=== PATIENT | male | born 1970 | race Caucasian/White ===

== ENCOUNTER 2019-12-13 22:15 | Emergency (ER) | payer OTHER, SELFPAY ==
[2019-12-13] MEDS ORDERED: FLUORESCEIN SODIUM 1 MG/WRAP ONE (22:52)
[2019-12-13] MEDS ORDERED: TETRACAINE HCL 0.5% 4ML OPTH ONE (22:52)
[2019-12-13] MEDS ORDERED: Ringers Lactate 1,000 ML IV ONE (23:16)
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
[2019-12-14] MEDS ORDERED: TOBRAMYCIN SULF 0.3% OPTH OINT ONE (00:11)
[2019-12-14 00:28] VITALS: TEMP 97.9
[2019-12-14 00:30] VITALS: BP 151/95; O2SAT 97
== END 2019-12-14 00:12 | disposition home or self-care (01) ==
LOC: ER 22:15
DX: H10.9 Unspecified conjunctivitis (principal); Z77.098 Contact with and (suspected) exposure to other hazardous, chiefly nonmedicinal, chemicals; F17.210 Nicotine dependence, cigarettes, uncomplicated; Z91.048 Other nonmedicinal substance allergy status
CPT/HCPCS: 96360; 99284; J7120

== ENCOUNTER 2023-06-05 19:50 | Inpatient (IN) | payer BC, SELFPAY ==
--- OUTSIDE RECORDS SUMMARY | 2023-06-05 19:53 | XMS REPORT | Continuity of Care Document ---
Author Name Unknown Address [address] [facility] [address] [place] [address] [facility] thconnect Address [address] [facility] [address] [place] [address] Care Team Providers Care Upholstery Department Supervisor Name Role Phone RAHUL NARANJO Primary Care Physician RAHUL Ames Attending Clinician UnavailRAHUL Mayer Attending Clinician Unavailab le 2, Adc Lab Attending Clinician Unavailable Doctor Unassigned, [place] Attending Clinician U navailable Payers Payer Name Policy Type Policy Number Effective Date Expirati on Date Source [place] - OUT OF STATE [id number] 2023 00:00:00 [place] MANA[place]ED MEDICAID STAR NON CONTRACTED [id number] 2023 00:00:00 Problems Condition Name Condition Details Condition Category Status Onset Date Resolution Date Last Treatment Date Treating Clinician Comments Source High cholestero l High cholestero l Disease Active 2-14 00:00: 00 [facility] Allergies, Adverse Reactions, Alerts Allergy Name Allergy Type Status Severity Reaction(s) Onset Date Inactive Date Treating Clinician Comments Source Red Dye Propensi ty to adverse reaction s Active Other - See comments 07-18 00:00: 00 Vision loss [facility] RED DYE DRUG INGREDI Active High Unknown-Cmnt 07-18 00:00: 00 [facility] Social History Social Habit Start Date Stop Date Quantity Comments Source History of tobacco use Cigarette Smoker [facility] Alcohol intake 2022-10-08 00:00:00 2022-10-08 00:00:00 .43 /d [facility] Cigarettes smoked current (pack per day) - Reported 2022-04-09 00:00:00 2022-04-09 00:00:00 [facility] Tobacco use and exposure 2022-04-09 00:00:00 2022-04-09 00:00:00 Smokeless tobacco non-user [facility] Tobacco Comment 2022-04-09 00:00:00 2022-04-09 00:00:00 Started at age 17 [facility] History SDOH Financial 2022-04-03 00:00:00 2022-04-03 00:00:00 5 [facility] History SDOH Food Worry 2022-04-03 00:00:00 2022-04-03 00:00:00 1 [facility] History SDOH Food Scarcity 2022-04-03 00:00:00 2022-04-03 00:00:00 1 [facility] History SDOH Transport Med 2022-04-03 00:00:00 2022-04-03 00:00:00 2 [facility] History SDOH Transport Non-Med 2022-04-03 00:00:00 2022-04-03 00:00:00 2 [facility] Alcohol Comment 2022-04-03 00:00:00 2022-04-03 00:00:00 monthly [facility] History of Social function 2022-04-03 00:00:00 2022-04-03 00:00:00 [facility] Sex Assigned At 1970 00:00:00 1970 00:00:00 [facility] Smoking Status Start Date Stop Date Source Smokes tobacco daily 2022-04-09 00:00:00 [facility] Medications Ordered Medication Name Filled Medication Name Start Date Stop Date Current Medication? Ordering Clinician Indication Dosage Frequency Signature (SIG) Comments Components Source LOVAZA, omega-3-aci d ethyl esters, (LOVAZA) 1 gram capsule 04-18 00:00: 00 Yes [id number] 2g Take 2 capsules by mouth in the morning and 2 capsules in the evening. [facility] Fenofibric Acid 135 mg capsule 2- 00:00: 00 Yes [id number] 135mg TAKE 1 CAPSULE BY MOUTH AT BEDTIME [facility] LOVAZA, omega-3-aci d ethyl esters, (LOVAZA) 1 gram capsule 3-31 00:00: 00 04-18 00:00 :00 No [id number] 1g Take 1 capsule by mouth in the morning and 1 capsule in the evening. [facility] Fenofibric Acid 135 mg capsule 2-20 00:00: 00 04-14 00:00 :00 No [id number] 135mg Take 1 capsule by mouth at bedtime. [facility] Fenofibric Acid 135 mg capsule 9- 00:00: 00 04-09 00:00 :00 No 135mg Take 135 mg by mouth. [facility] Immunizations Ordered Immunization Name Filled Immunization Name Date Status Comments Source DTAP 2019-03-19 00:00:00 Completed [facility] DTAP 2019-03-19 00:00:00 Completed [facility] DTAP 2019-03-19 00:00:00 Completed [facility] DTAP 2019-03-19 00:00:00 Completed [facility] DTAP 2019-03-19 00:00:00 Completed [facility] DTAP 2019-03-19 00:00:00 Completed [facility] DTAP 2019-03-19 00:00:00 Completed [facility] DTAP 2019-03-19 00:00:00 Completed [facility] DTAP Unknown Completed [facility] DTAP Unknown Completed [facility] DTAP Unknown Completed [facility] DTAP Unknown Completed [facility] Vital Signs Vital Name Observation Time Observation Value Comments S ource Systolic blood pressure 2023-04-19 15:43:00 130 mm[Hg] [facility] Diastolic blood pressure 2023-04-19 15:43:00 84 mm[Hg] [facility] acute hospital Heart rate 2023-04-19 15:43:00 60 /min [facility] Body temperature 2023-04-19 15:43:00 36.39 Liz [facility] Respiratory rate 2023-04-19 15:43:00 18 /min [facility] Body height 2023-04-19 15:43:00 175.3 cm Univ [facility] Body weight 2023-04-19 15:43:[address] [facility] BMI 2023-04-19 15:43:00 27.87 kg/m2 [facility] Oxygen saturation in Arterial blood by Pulse oximetry 2023-04-19 15:43:00 94 /min [facility] acute hospital Systolic blood pressure 2022-10-08 14:25:00 138 mm[Hg] General acute hospital Diastolic blood pressure 2022-10-08 14:25:00 83 mm[Hg] [facility] acute hospital Body weight 2022-10-08 14:24:[address] [facility] BMI 2022-10-08 14:24:00 27.64 kg/m2 [facility] Oxygen saturation in Arterial blood by Pulse oximetry 2022-10-08 14:24:00 98 /min General acute hospital Heart rate 2022-10-08 14:24:00 58 /min Un[facility] Body temperature 2022-10-08 14:24:00 36.56 Liz [facility] Respiratory rate 2022-10-08 14:24:00 22 /min [facility] Body height 2022-10-08 14:24:00 175.3 cm [facility] Diastolic blood pressure 2022-04-09 21:03:00 75 mm[Hg] General acute hospital Heart rate 2022-04-09 21:03:00 70 /min Un[facility] Body temperature 2022-04-09 21:03:00 37.11 Liz [facility] Respiratory rate 2022-04-09 21:03:00 18 /min [facility] Body height 2022-04-09 21:03:00 176.5 cm [facility] Body weight 2022-04-09 21:03:00 85.957 kg Univ [facility] BMI 2022-04-09 21:03:00 27.58 kg/m2 [facility] Oxygen saturation in Arterial blood by Pulse oximetry 2022-04-09 21:03:00 95 /min General acute hospital Systolic blood pressure 2022-04-09 21:03:00 127 mm[Hg] General acute hospital Procedures Procedure Date / Time Performed Performing Clinician Source FREE T4 2023-04-19 16:39:00 Rahul Naranjo Un [facility] THYROID STIMULATING HORMONE 2023-04-19 16:39:00 Rahul Naranjo [facility] COMP. METABOLIC PANEL (96512) 2023-04-19 16:39:00 Rahul Naranjo [facility] LIPID PANEL (64370)(TOTAL CHOLESTEROL, TRIGLYCERIDES, HDL) 2023-04-19 16:39:00 Rahul Naranjo [facility] CBC WITH DIFF 2023-04-19 16:39:00 Rahul Naranjo U [facility] GLYCOSYLATED HEMOGLOBIN (A1C) 2023-04-19 16:39:00 Rahul Naranjo [facility] FREE T3 2023-04-19 16:39:00 Rahul Naranjo [facility] ASSIGNMENT OF BENEFITS 2022-10-08 14:17:52 Docto r Unassigned, [place] [facility] Encounters Start Date/Time End Date/Time Encounter Type Admission Type Attending Clinicians Care Facility Care Department Encounter ID Source 2023-10-18 09:30:00 2023-10-18 09:30:00 Outpatient R RAHUL [facility]ARANJO [facility] [id number] [facility] 2023-10-16 15:30:00 2023-10-16 15:30:00 Outpatient R RAHUL NARANJO [facility] [id number] [facility] 2023-04-19 10:30:00 2023-04-19 10:45:00 Glass Presser Visit 2, [facility] Rahul [facility]aran[facility] 1.2.840.114 350.1.13.10 4.2.7.2.686 [id number] [facility] 2023-04-19 09:30:00 2023-04-19 10:23:21 Office Visit Rahul Naranjo [facility] 1.2.840.114 350.1.13.10 4.2.7.2.686 [id number] [facility] 2023-04-19 09:30:00 2023-04-19 10:23:21 Outpatient R JOSE AVIC REMYVanessaJosé Antonio FERNANDEZJOSE AJUAN YINGKARTIKVanessaJosé Antonio [facility] [id number] [facility] 2023-04-13 00:00:00 2023-04-13 00:00:00 Refill Rahul Naranjo [facility] 1.2.840.114 350.1.13.10 4.2.7.2.686 [id number] [facility] 2022-10-08 10:30:00 2022-10-08 10:45:00 Glass Presser Visit 2, Adc Lab Rahul Naranjo [facility] 1.2.840.114 350.1.13.10 4.2.7.2.686 [id number] [facility] 2022-10-08 09:30:00 2022-10-08 10:28:26 Outpatient R VIC NARANJOVanessaJosé Antonio FERNANDEZJOSE A VICVanessaJosé Antonio [facility] [id number] [facility] 2022-10-08 09:30:00 2022-10-08 10:28:26 Office Visit Rahul Naranjo [facility] 1.2.840.114 350.1.13.10 4.2.7.2.686 [id number] [facility] 2022-10-08 00:00:00 2022-10-08 00:00:00 Orders Only Doctor Unassigned, [place] [facility] 1.2.840.114 350.1.13.10 4.2.7.2.686 [id number] [facility] 2022-05-18 00:00:00 2022-05-18 00:00:00 Telephone Juan Naranjosaji [facility] 1.2.840.114 350.1.13.10 4.2.7.2.686 [id number] [facility] 2022-04-10 10:00:00 2022-04-10 10:15:00 Glass Presser Visit 2, Adc Lab Jose ARahul remy [facility] 1.2.840.114 350.1.13.10 4.2.7.2.686 [id number] [facility] 2022-04-10 10:00:00 2022-04-10 10:00:00 Outpatient R RAHUL NARANJO [facility] [id number] [facility] 2022-04-09 15:00:00 2022-04-09 15:53:01 Office Visit Rahul Naranjo [facility] 1.2.840.114 350.1.13.10 4.2.7.2.686 [id number] [facility] 2022-04-09 15:00:00 2022-04-09 15:53:01 Outpatient R RHAUL NARANJO [facility] [id number] [facility] Notes Date/Time Note Provider Source 2023-04-19 10:30:00 hreC9LD9ebYd5m8gmh2C VpyThSvs9xIooi vt0AkZXl5xXkhs9rpf/wvKJ9SZSSlA6863 -03-01T10:30:00 Images from the original note were not included.Venipuncture collection performed by clean technique on the left anticubitus. Total of 1 attempts were made. Slight pressure and a bandage/dressing were applied to the site(s). The patient experienced no complications. The following specimens were processed according to instructions and sent to [facility] laboratories per lab order on 04/19/2023:LT BLUESST 1REDLAV 2PPTDK GREEN (LiHep)DK GREEN (SodH)GRAYDK BLUE (K2)DK BLUE (S)ACDBlood CultureNIPT/NTD 50604-6Pnary TqvaPP3390-04-55X34:39:49Nurse NoteTXT1.2.840.679592.1.13.104.2.7 .2.769708|[id number] for patient xien29673-3Swcyz NoteLNNARRATIVEFormatted C-CDA narrative text[address] RaiwAhfjszuveEvdqmfgesXWGX00401088 23DQMGPBPQRSPEMAGJDQFENM4384-95-85 T10:39:491.2.840.572004.1.72.3.15| 1.2.840.545656.1.13.104.2.7.2.7278 [id number] [facility] 2023-04-14 15:58:49 Atorwetz6FMPo2DUn8df EzQnONTfTN0+Lo nHBzB1bruAZhrRvegG3M2c45topO6q7564 -02-25T15:58:49 Last OV: 10/08/2022 with [facility] [employer] Refill: 04/09/2022 prescribed by [facility] Pertaining to Med:Recent Labs571310MZPA 231*LDL 124HDL 36*TRIG 355*AST(SGOT) (U/L)Date Value10/08/2022 28ALTv (U/L)Date Value10/08/2022 28Future Appt:Future AppointmentsProvider Department Dept Phone04/19/2023 9:30 AM Rahul Naranjo NP [facility] [place] [phone] request for fenofibric acid refilled per ambulatory refill guidelines. 77628-0Xujpsummj encounter KpfnKZ7794-24-27T88:00:55Telephone encounter NoteTXT1.2.840.293607.1.13.104.2.7 .2.969207|[id number] for patient mgmw93112-3RmvdDUNRULEYDKHRhkrwdfm d C-CDA narrative [id number] A Nelson RNUT[address] Cp[id number] 84ZCVZEUCTOLNWJBOYRWCFCI5399-14-66 T16:00:551.2.840.202482.1.72.3.15| 1.2.840.751714.1.13.104.2.7.2.7278 [id number] Chelly Sanches RN [facility] 2022-10-08 10:30:00 A+WEtKxp3tGqFY9q9pYx I1V4X8XZ5M/XoP QIGKEJ3x3uw0aeYj5k9xbnPysWmYhA1181 -08-21T10:30:00 Images from the original note were not included.Venipuncture collection performed by clean technique on the left anticubitus. Total of 1 attempts were made. Slight pressure and a bandage/dressing were applied to the site(s). The patient experienced no complications. The following specimens were processed according to instructions and sent to [facility] laboratories per lab order on 10/08/2022: LT BLUE SST 2 RED LAV 2 PPT DK GREEN (LiHep) DK GREEN (SodH) WOO DK BLUE (K2) DK BLUE (S) ACD Blood Culture NIPT/NTD [id number] XadsFT7578-94-65V18:37:50Nurse NoteTXT1.2.840.325484.1.13.104.2.7 .2.701386|[id number] for patient jaut13798-5Fonrq NoteLNUT[address] Nl[id number] 51LUIYBXQBDNLQGAJDXVWGRL2145-57-32 T10:37:501.2.840.734291.1.72.3.15| 1.2.840.766950.1.13.104.2.7.2.7278 [id number] [facility]"
[2023-06-05] MEDS ORDERED: ONDANSETRON 4 MG/2 ML VIAL ONE (20:30)
[2023-06-05] MEDS ORDERED: MORPHINE 4 MG/ML SYR ONE (20:31)
[2023-06-05] MEDS ORDERED: NA CHLORIDE 0.9% 1,000 ML ONE ×2 (20:31→21:29)
[2023-06-05 20:52] LABS: Absolute Basophils 0.1 K/uL (0-0.5); Absolute Eosinophils 0.1 K/uL (0-0.5); Absolute Lymphocytes (CBC) 2.8 K/uL (0.7-4.9); Absolute Monocytes 1.1 K/uL (0.1-1.3); Basophils % 0.7 % (0-1.3); Eosinophils % 0.4 % (0-4.4); Hematocrit 40.8 % (39.6-49.0); Hemoglobin 13.6 g/dL (13.6-17.9); Lymphocytes % 19.8 % (15.3-44.8); MCH 29.6 pg (27.0-35.0); MCHC 33.4 g/dL (32.0-36.0); MCV 88.7 fL (80-100); MPV 7.4 fL (7.6-11.3); Neutrophils % 71.1 % (41.7-73.7); Nucleated Red Blood Cells % 0.1 % (0-0); Platelets 315 thou/uL (152-406); RBC Red Blood Cell Count 4.59 M/uL (4.33-5.43); Red Cell Distribution Width 14.1 % (12.1-15.2)
--- NOTE | 2023-06-05 20:52 | RAD REPORT ---
EXAM DESCRIPTION: CTAbdomen Pelvis W Contrast - 06/05/2023 8:43 pm CLINICAL HISTORY: Abdominal pain. ABD PAIN COMPARISON: No comparisons TECHNIQUE: Biphasic CT imaging of the abdomen and pelvis was performed with 100 ml non-ionic IV cont rast. All CT scans are performed using dose optimization technique as appropriate and may include automated exposure control or mA/KV adjustment according to patient size. FINDINGS: Vague nodular density seen in the right lung base.Small hiatal hernia. The liver, spleen, pancreas, adrenal glands and kidneys are within normal limits. 3.7 cm left renal c yst, benign appearance. No bowel obstruction, free air, free fluid or abscess. Mild sigmoid diverticulosis coli without diver ticulitis. The appendix is moderately implant is dilated to 13 mm. Small fat containing bilateral ing uinal hernias. No evidence of significant lymphadenopathy. No suspicious bony findings. IMPRESSION: Acute appendicitis.
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
[2023-06-05 21:03] LABS: Albumin 3.9 g/dL (3.4-5.0); Anion Gap 9.1 mEq/L (5.0-15.0); Bilirubin Total 0.8 mg/dL (0.2-1.0); Globulin 4.1 g/dL (2.3-3.5); Potassium 4.1 mEq/L (3.5-5.1)
[2023-06-05 21:16] LABS: Specific Gravity 1.028 (1.005-1.030); Urine Bilirubin NEGATIVE (Negative); Urine Blood Negative (Negative); Urine Clarity Turbid (Clear); Urine Color Yellow (Yellow); Urine Glucose NEGATIVE (Negative); Urine Ketones NEGATIVE (Negative); Urine Microscopic Reflex YN NO UMIC; Urine Nitrite NEGATIVE (Negative); Urine Protein TRACE (Negative); Urine Urobilinogen Normal (Normal); Urine pH 5.5 (5.0-7.0)
[2023-06-05] MEDS ORDERED: METRONIDAZOLE 500mg IVPB 500 MG/100 ML BAG IV ONE (21:30)
[2023-06-05] MEDS ORDERED: CIPROFLOXACIN 400mg IV 400 MG/200 ML BAG IV ONE (21:30)
[2023-06-05] MEDS ORDERED: MORPHINE 4 MG/ML SYR IV PRN (22:32)
[2023-06-05] MEDS ORDERED: ONDANSETRON 4 MG/2 ML VIAL IV PRN (22:32)
[2023-06-05] MEDS: CIPROFLOXACIN 400mg IV 400 MG/200 ML BAG IV SCH (22:34)
[2023-06-05] MEDS: NA CHLORIDE 0.9% 1,000 ML IV SCH (22:35)
[2023-06-05 22:39] VITALS: BMI 26.8
[2023-06-05] MEDS: METRONIDAZOLE 500mg IVPB 500 MG/100 ML BAG IV SCH (23:32)
[2023-06-06 03:54] LABS: Absolute Eosinophils 0.1 K/uL (0-0.5); Absolute Lymphocytes (CBC) 1.9 K/uL (0.7-4.9); Absolute Neutrophil 8.4 K/uL (1.8-8.0); Basophils % 0.3 % (0-1.3); Eosinophils % 0.8 % (0-4.4); Hematocrit 35.2 % (39.6-49.0); Lymphocytes % 16.6 % (15.3-44.8); MCHC 33.9 g/dL (32.0-36.0); MCV 88.5 fL (80-100); MPV 7.6 fL (7.6-11.3); Monocytes % 8.9 % (3.3-12.3); Neutrophils % 73.4 % (41.7-73.7); Platelets 262 thou/uL (152-406); RBC Red Blood Cell Count 3.98 M/uL (4.33-5.43); Red Cell Distribution Width 13.9 % (12.1-15.2)
[2023-06-06 04:07] LABS: Anion Gap 5.7 mEq/L (5.0-15.0); Potassium 3.7 mEq/L (3.5-5.1)
[2023-06-06] MEDS ORDERED: FENTANYL CITR 100 MCG/2 ML ONE ×2 (07:25→09:27)
[2023-06-06] MEDS ORDERED: ONDANSETRON 4 MG/2 ML VIAL ONE (07:25)
[2023-06-06] MEDS ORDERED: propofoL 200 MG/20 ML VIAL IV ONE (07:25)
[2023-06-06] MEDS ORDERED: ROCURONIUM 50 MG/5 ML VIAL IV ONE (07:25)
[2023-06-06] MEDS ORDERED: MIDAZOLAM HCL 2 MG/2 ML INJ ONE (07:25)
[2023-06-06] MEDS ORDERED: LIDOCAINE 2% MPF 5 ML VIAL ONE (07:25)
[2023-06-06] MEDS: Ringers Lactate 1,000 ML IV ONE ×2 (07:56→11:13)
[2023-06-06] MEDS ORDERED: dexAMETHasone 10 MG/ML VIAL ONE (09:06)
[2023-06-06] MEDS ORDERED: GLYCOPYRROLATE 0.2 MG/ML SYR ONE ×2 (10:09→10:10)
[2023-06-06] MEDS ORDERED: NEOSTIGMINE 1 MG/ML -10 ML VIAL ONE (10:10)
--- NOTE | 2023-06-06 10:20 | P.BOP ---
Preoperative diagnosis: RLQ abd pain, acute appendicitis Postoperative diagnosis: same plus inflammed Meckel's diverticulum Primary procedure: Laparoscopic resection of inflammed Meckel's diverticulum suppurative Secondary procedure: Laparoscopic appendectomy Other procedure(s): Open repair of umbilica hernia Pop Singer: Mary Grace Sanchez (Andi) Estimated blood loss: <20cc Specimen: inflammed suppMeckel's diverticulum resection from small bowel and appendix Findings: imflammed Meckel's diverticulum with necrotic tip over an inflammed apendix Anesthesia: General Complications: None Drain(s): MJ drain Transferred to: Recovery Room Condition: Good
[2023-06-06] MEDS ORDERED: SODIUM CHLORIDE 0.9% 10ML INJ IV PRN (10:40)
[2023-06-06] MEDS: NA CHLORIDE 0.9% 1,000 ML IV SCH (12:18)
[2023-06-06] MEDS: METRONIDAZOLE 500mg IVPB 500 MG/100 ML BAG IV SCH (12:20)
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
[2023-06-06] MEDS: ONDANSETRON 4 MG/2 ML VIAL IV PRN (17:39)
[2023-06-06] MEDS: HYDROMORPHONE HCL 1 MG/ML INJ IV PRN (17:41)
[2023-06-06] MEDS: CIPROFLOXACIN 400mg IV 400 MG/200 ML BAG IV SCH (21:12)
[2023-06-07 07:14] LABS: Absolute Lymphocytes (CBC) 1.1 K/uL (0.7-4.9); Absolute Monocytes 0.7 K/uL (0.1-1.3); Basophils % 0.1 % (0-1.3); Hematocrit 31.2 % (39.6-49.0); Hemoglobin 10.7 g/dL (13.6-17.9); MCH 30.4 pg (27.0-35.0); MCHC 34.2 g/dL (32.0-36.0); MCV 88.9 fL (80-100); MPV 7.9 fL (7.6-11.3); Monocytes % 6.5 % (3.3-12.3); Neutrophils % 83.4 % (41.7-73.7); Platelets 262 thou/uL (152-406); Red Cell Distribution Width 13.7 % (12.1-15.2)
[2023-06-07 07:22] LABS: Anion Gap 6.7 mEq/L (5.0-15.0); Potassium 3.7 mEq/L (3.5-5.1)
[2023-06-07] MEDS: PANTOPRAZOLE 40 MG INJ IVP SCH (08:03)
[2023-06-07] MEDS: HYDROCODONE/APAP 5/325 MG TAB PO PRN (10:43)
--- NOTE | 2023-06-07 16:23 | PN ---
Date of Progress Note: 06/07/2023 Subjective: Diagnoses are two, the patient came with abdominal pain, found to have inflammation of M dede diverticulum. At the same time coincidentally he was also found to have acute appendicitis. B oth process away from each other, but active at the same time, so he was admitted for observation, pa in control after having successful surgery, so we did surgery on the large bowel with the appendix an d small bowel with Meckel diverticulum, with 2 different staple lines. For that reason, we kept the patient in the hospital. We are going to advance diet slowly. We do not want any leak in this area. He is doing great, afebrile. No shortness of breath. No chest pain. No fever. Objective: Chest: Clear. Abdomen: Soft and depressible. Intact surgical site. MJ drain serosanguineous. Extremities: Good capillary refill. Plan: Incentive spirometry. Ambulation. Continue antibiotics. We are going to start liquid diet t omorrow and advance until Saturday. By Saturday if he is tolerating diet then he is going to go home on soft diet. We advised him on the importance of following up in the future to make sure that the smal l bowel mass that we removed in this case that looked like Meckel diverticulum or the appendix showed any malignancy. RASHEL/JAIME Voice ID: [id number] Report ID: [id number]
--- NOTE | 2023-06-08 13:22 | P.PN ---
Subjective Date of Service: 06/08/23 Subjective: Ambulating, Improving not tolerating diet yet Review of Systems Eyes: Unremarkable ENT: Unremarkable Respiratory: Unremarkable Cardiovascular: Unremarkable Gastrointestinal: Nausea, Abdominal Pain, Distention Physical Examination - Vital Signs Temperature: 97.9 F Blood Pressure: 115/65 Pulse: 47 Respirations: 15 Pulse Ox (%): 96 - Physical Exam General: Alert, Oriented x3 HEENT: Normocephalic, PERRLA Neck: Supple Gastrointestinal: Soft and benign Musculoskeletal: No erythema, No tenderness, No warmth Integumentary: No rashes, No breakdown Assessment And Plan - Plan OOB keep IV abx advance diet DH when tolerate diet
[2023-06-08 22:11] VITALS: O2SAT 99
[2023-06-09 07:40] VITALS: BP 143/72; TEMP 97.8
--- NOTE | 2023-07-01 21:41 | OP ---
Date of Procedure: 06/06/2023 Surgeon: Noble Farrell MD Fast Food Sales Assistant: Mary Grace Ramirez. Preoperative Diagnoses: Right lower quadrant abdominal pain, acute appendicitis, acute abdominal rashad n. Postoperative Diagnoses: Right lower quadrant abdominal pain, acute appendicitis, acute abdominal pa in, plus inflamed Meckel's diverticulum, and appendicitis. Procedures: 1.Laparoscopic resection of inflamed Meckel's diverticulum from the small bowel, suppurative. 2.Laparoscopic appendectomy. 3.Open repair of umbilical hernia. Estimated Blood Loss: Less than 20 cc. Specimen: Inflamed suppurative Meckel's diverticulum resection from the small bowel and also we did appendectomy due to inflammation. Findings: Patient having flare of Meckel's diverticulum with necrotic tip. The base of the Meckel's diverticulum seems to be spared, so we were able to put an Endo-REILLY at the level of the small bowel and since this is a large diverticulum, we were able to dissect right through the neck of this Meckel 's diverticulum and sent the rest to the pathologist. We also noticed an inflamed appendix, no doubt about it. There are two pathology at the same time. Anesthesia: General plus local. Drains: MJ #10. Indications For Procedure: This is the case of a male, who came to the ER complaining of abdominal p ain, initial diagnosis which is appendicitis. The benefits, alternatives, and risks of laparoscopic, possible open appendectomy consent fully explained which include, but not limited to, infection, ble eding, damage to adjacent structures, anesthesia complication, abscess, IA, and even . He also understands this may not relieve any symptoms. He might need more than one surgical intervention. H e understood, signed a consent. Description Of Procedure: Patient was brought to the operating room, placed in supine position. Ane sthesia was done without complication. Abdominal area was prepped and draped in sterile fashion. Ma rcaine 0.5% was injected for local anesthetic followed by sharp incision of the skin in the infraumbi lical region. Incision was carried down to fascia, which was opened under direct vision. Before we put a Vicryl #1, we noticed the patient to have umbilical hernia, so we used that umbilical hernia op ening plus extended even more to be able to accommodate our trocars. Hernia sac was removed. After that, Vicryl #1 placed in the fascia and the umbilical hernia. John trocar was carefully introduce d. Pneumoperitoneum was obtained. We noticed an inflammation in the right lower quadrant. There wa s something unusual in the small bowel, so we proceeded to place 2 more 5 mm trocars suprapubic left lower quadrant till we can do diagnostic laparoscopy in that area and define the issue. When we noti galileo this area we noticed when we ran the bowel, we noticed the patient to have in the terminal ileum, a large what it looked like Meckel's diverticulum. The head is inflamed. It is partially necrotic, but the base seems to be spared from the inflammation. We can easily fit an Endo-REILLY in that area w ithout getting the part of the disease. Before we went ahead with that, we looked at the area of the appendix and indeed also it looked inflamed with some suppurative tissue around the area. So we hav e two surgeries now at this moment. We addressed each one individually. For the appendix, we create d a window in the base of the appendix, transected that with an Endo REILLY 45 mm nonvascular and the me soappendix with a combination of a vascular and a ligature. The appendix was removed from abdominal cavity using an EndoCatch through umbilical incision. No bleeding. No bowel leak. At that moment, we defined the area of what it looked like a Meckel's diverticulum. We noticed at the base of that w e can transect that without decreasing the lumen of that small bowel right at the neck and once again having enough distance to the diseased part of the supposed to be Meckel's to have gross negative ma rgins. So carefully we transected that with the help of Endo-REILLY 45 mm nonvascular. No bowel leak. The specimen was sent to the pathologist through an EndoCatch through the umbilical incision. The a gladys was inspected once again. No bile leak. No bleeding. Omentum placed over that area. Profuse i rrigation was done and suctioned. MJ drain was left in the right lower quadrant exiting through one of the trocar sites and secured that in place with 3-0 nylon. Patient tolerated the procedure well. At that moment, I proceeded to remove the trocars under direct vision, closed the umbilical hernia w ith a #1 Vicryl. Irrigated subcutaneous tissue, closed that with 3-0 chromic and the skin with stapl es. Sponge counts and instrument counts were correct. Patient tolerated the procedure well. Herberth t on his way to recovery in stable condition. RASHEL/JAIME Voice ID: [id number] Report ID: [id number]
== END 2023-06-09 11:51 | disposition home or self-care (01) | DRG 330 ==
LOC: ER 19:50 → ERHOLD 20:59 → 2ND 21:57 → OBSVTOIN 06-06 10:51
PROVIDERS: ADMIT Surgery; ATTEND Surgery
PROC: 0DTJ4ZZ Resection of Appendix, Percutaneous Endoscopic Approach (ICD-10-PCS; 2023-06-06)
PROC: 0WQF0ZZ Repair Abdominal Wall, Open Approach (ICD-10-PCS; 2023-06-06)
PROC: 0DB84ZZ Excision of Small Intestine, Percutaneous Endoscopic Approach (ICD-10-PCS; principal; 2023-06-06 09:15)
DX: Q43.0 Meckel's diverticulum (displaced) (hypertrophic) (principal); K35.80 Unspecified acute appendicitis; E78.00 Pure hypercholesterolemia, unspecified; N28.1 Cyst of kidney, acquired; K40.90 Unilateral inguinal hernia, without obstruction or gangrene, not specified as recurrent; F17.210 Nicotine dependence, cigarettes, uncomplicated; Z71.6 Tobacco abuse counseling; Z91.09 Other allergy status, other than to drugs and biological substances; Z28.310 Unvaccinated for COVID-19
CPT/HCPCS: 36415; 74177; 80048; 80053; 81003; 83690; 85025; 88302; 88304; 94010; 96365; 96368; 96375; 97116; 97161; 99285; C9113; G0378; J0744; J1100; J1170; J2001; J2250; J2405; J2704; J2710; J3010; J7030; J7120; Q9967

== ENCOUNTER 2023-07-24 06:56 | Day surgery (SDC) | payer BC ==
[2023-07-19 08:58] LABS: Absolute Basophils 0.1 K/uL (0-0.5); Absolute Eosinophils 0.2 K/uL (0-0.5); Absolute Lymphocytes (CBC) 2.6 K/uL (0.7-4.9); Absolute Monocytes 0.7 K/uL (0.1-1.3); Absolute Neutrophil 4.7 K/uL (1.8-8.0); Basophils % 0.8 % (0-1.3); Eosinophils % 2.9 % (0-4.4); Hematocrit 40.9 % (39.6-49.0); Hemoglobin 13.8 g/dL (13.6-17.9); Lymphocytes % 31.1 % (15.3-44.8); MCH 30.2 pg (27.0-35.0); MCHC 33.8 g/dL (32.0-36.0); MCV 89.2 fL (80-100); MPV 7.4 fL (7.6-11.3); Monocytes % 8.2 % (3.3-12.3); Platelets 348 thou/uL (152-406); RBC Red Blood Cell Count 4.59 M/uL (4.33-5.43); Red Cell Distribution Width 13.6 % (12.1-15.2)
[2023-07-19 09:07] LABS: Anion Gap 7.2 mEq/L (5.0-15.0); Potassium 4.2 mEq/L (3.5-5.1)
--- NOTE | 2023-07-19 16:47 | EKG ---
Test Date: 2023-07-19 Test Time: 08:44:33 Emr Trainer: LINDA MEASUREMENT RESULTS: Intervals: Rate: 47 ME: 164 QRSD: 90 QT: 422 QTc: 373 Howell: P: 46 ME: 164 QRS: 104 T: 46 INTERPRETIVE STATEMENTS: Marked sinus bradycardia Rightward axis Abnormal ECG No previous ECG available for comparison Electronically Signed On 07-19-23 16:47:12 CDT by Jose A Lauren
[2023-07-24] MEDS: Ringers Lactate 1,000 ML IV ONE (07:30)
[2023-07-24] MEDS ORDERED: propofoL 200 MG/20 ML VIAL IV ONE ×2 (08:16)
[2023-07-24] MEDS ORDERED: LIDOCAINE 1% MPF 5 ML VIAL ONE (08:16)
[2023-07-24 10:41] VITALS: BP 105/56; TEMP 97.4; O2SAT 96
== END 2023-07-24 09:25 | disposition home or self-care (01) ==
LOC: OR 06:56
PROVIDERS: ATTEND Surgery
PROC: 0DJD8ZZ Inspection of Lower Intestinal Tract, Via Natural or Artificial Opening Endoscopic (ICD-10-PCS; principal; 2023-07-24 08:15)
DX: Z12.11 Encounter for screening for malignant neoplasm of colon (principal); K57.30 Diverticulosis of large intestine without perforation or abscess without bleeding; K64.4 Residual hemorrhoidal skin tags; K64.8 Other hemorrhoids; E78.00 Pure hypercholesterolemia, unspecified
CPT/HCPCS: 93005; 85025; 80048; 36415; 45378; J2704 ×2; J2001; J7120